=== PATIENT | female | born 1935 | race African-American/Black ===

== ENCOUNTER 2020-01-29 11:23 | Emergency (ER) | payer MEDICARE, MEDICAID ==
[~2020-01-29] VITALS: Ht 157.5 cm; Wt 62.0 kg
[~2020-01-29 11:23] MED LIST: DIPH25CA83 GT; FERR220S12 GT; HYDR-523 GT; IPRA3AMP9 IH; METO-539 GT; TOPUD GT; VIT500LI GT
[2020-01-29] MEDS ORDERED: BACITRACIN ZINC OINT UDPKT TOP ONE (13:30)
[2020-01-29] MEDS ORDERED: TETANUS, DIPHTHERIA, PERTUSSIS VAC/PF 0.5ML (>7YR OLD) IM ONE (13:30)
[2020-01-29] MEDS ORDERED: LIDOCAINE 1%/EPI 1:100,000 10 ML VIAL IJ ONE (13:30)
[2020-01-29 13:55] VITALS: BP 170/95
== END 2020-01-29 16:00 | disposition home or self-care (01) ==
LOC: ER 11:39
DX: S01.81XA Laceration without foreign body of other part of head, initial encounter (principal); S13.4XXA Sprain of ligaments of cervical spine, initial encounter; E11.9 Type 2 diabetes mellitus without complications; E78.00 Pure hypercholesterolemia, unspecified; Z88.0 Allergy status to penicillin; Z88.8 Allergy status to other drugs, medicaments and biological substances; Z79.899 Other long term (current) drug therapy; W18.30XA Fall on same level, unspecified, initial encounter; Y93.89 Activity, other specified; Y92.89 Other specified places as the place of occurrence of the external cause; Y99.8 Other external cause status
CPT/HCPCS: 12015; 70450; 72125; 90471; 90715; 93005; 99285; J3490